=== PATIENT | male | born 1980 | race Caucasian/White ===

== ENCOUNTER → 2017-06-22 | Outpatient (CLI) | payer OTHER ==
[~2017-06-22] MED LIST: ALLERGY RELIEF10 M1; AUGMENTIN 875 M1 TAB PO; CIPRO500 MG PO; CLARITIN10 MG PO; DAYPRO600 M1 PO; Depakote250 MG; FLAGYL500 MG PO; INDERAL LA160 MG PO; LOMOTIL 0.025 M1 TA1 PO; LOMOTIL 0.025 M1 TAB PO; MOTRIN800 MG PO; NASONEX0.05 MG/AC NAS; NORCO 325 MG-51 TAB PO; NORCO 5-325 TA1 EACH PO; OMEPRAZOLE MAGN20 M1; PERCOCET 325 MG1 TA6 PO; PRAVACHOL10 MG PO; PREDNICOT20 MG PO; Phenergan25 MG PO; SINGULAIR10 MG PO; TOBRADEX 0.1%-0.5 ML OPH; TRAMADOL HCL50 MG PO; TRAMADOL HYDRO100 MG; TRIMOX500 MG PO; VENLAFAXINE150 MG PO; XANAX XR1 MG PO; ZANTAC150 MG PO; ZITHROMAX Z PA250 MG PO; ZOFRAN ODT4 MG SL; ZOFRAN4 MG PO
[2017-06-22 11:18] LABS: BASO % 0.5 % (0.0-1.0); EOS % 0.2 % (1.0-4.0); HEMATOCRIT 46.3 % (42.0-52.0); HEMOGLOBIN 16.1 g/dl (14.0-18.0); LYMPH # 3.4 10*3/uL (1.3-4.4); LYMPH % 38.9 % (27.0-41.0); MEAN CELL VOLUME 96.9 fl (80.0-94.0); MEAN CORPUSCULAR HGB 33.7 pg (27.0-31.0); MEAN CORPUSCULAR HGB CONC 34.8 g/dl (33.0-37.0); MEAN PLATELET VOLUME 8.8 fl (9.6-12.3); MONO # 0.7 10*3/uL (0.1-1.0); MONO % 8.1 % (3.0-9.0); NEUT # 4.6 10*3/uL (2.3-7.9); PLATELET COUNT AUTOMATED 313 10*3/uL (130-400); RED BLOOD COUNT 4.78 10*6/uL (4.50-5.90); RED CELL DISTRI WIDTH 12.5 % (0-14.5); WHITE BLOOD COUNT 8.9 10*3/uL (4.8-10.8)
[2017-06-22 11:46] LABS: ALBUMIN 3.7 gm/dl (3.1-4.5); ALKALINE PHOSPHATASE 103 U/L (45-117); BUN 6 mg/dl (7-24); CHLORIDE 106 mmol/L (98-107); CHOLESTEROL 148 mg/dL (<200); CREATININE 1.04 mg/dL (0.70-1.30); HDL CHOLESTEROL 39 mg/dl (40-60); LDL CHOLESTEROL 88 mg/dL (9-159); POTASSIUM 4.2 mmol/L (3.5-5.1); SGOT/AST 21 IU/L (3-35); SGPT/ALT 29 U/L (12-78); SODIUM 139 mmol/L (136-145); TOTAL PROTEIN 7.2 gm/dL (6.4-8.2); TRIGLYCERIDES 103 mg/dl (<150); VLDL CHOLESTEROL 21 mg/dL (6-40)
== END | disposition home or self-care (01) ==
LOC: LAB 10:55
PROVIDERS: Nurse Practitioner Family
DX: I10 Essential (primary) hypertension (principal)

== ENCOUNTER → 2018-06-24 | Day surgery (SDC) | payer OTHER ==
[2018-06-21 11:35] LABS: BASO % 0.4 % (0.0-1.0); EOS % 0.1 % (1.0-4.0); HEMATOCRIT 46.3 % (42.0-52.0); HEMOGLOBIN 16.1 g/dl (14.0-18.0); LYMPH # 2.1 10*3/uL (1.3-4.4); MEAN CELL VOLUME 95.3 fl (80.0-94.0); MEAN CORPUSCULAR HGB 33.1 pg (27.0-31.0); MEAN CORPUSCULAR HGB CONC 34.8 g/dl (33.0-37.0); MONO # 0.6 10*3/uL (0.1-1.0); MONO % 5.8 % (3.0-9.0); NEUT # 7.1 10*3/uL (2.3-7.9); NEUT % 72.5 % (47.0-73.0); PLATELET COUNT AUTOMATED 323 10*3/uL (130-400); RED BLOOD COUNT 4.86 10*6/uL (4.50-5.90); RED CELL DISTRI WIDTH 12.5 % (0-14.5); WHITE BLOOD COUNT 9.8 10*3/uL (4.8-10.8)
[2018-06-21 11:45] LABS: BILIRUBIN NEGATIVE (NEGATIVE); BLOOD NEGATIVE (NEGATIVE); CLARITY SL CLOUDY (CLEAR); COLOR YELLOW (YELLOW); GLUCOSE NEGATIVE (NEGATIVE); KETONE NEGATIVE (NEGATIVE); LEUKO ESTERASE NEGATIVE (NEGATIVE); NITRITE NEGATIVE (NEGATIVE); PH 6.5 (5.0-9.0); UROBILINOGEN 0.2 E.U./dl (0.2-1.0)
[2018-06-21 12:05] LABS: BUN 6 mg/dl (7-24); CHLORIDE 106 mmol/L (98-107); SODIUM 140 mmol/L (136-145)
[2018-06-21 12:22] LABS: INTERNATIONAL NORM RATIO 1.1 (2.0-3.5)
[2018-06-21 13:19] LABS: BACTERIA TRACE; MUCOUS 1+
[~2018-06-24] VITALS: Ht 182.8 cm; Wt 74.8 kg
--- NOTE | ~2018-06-24 | O ---
[place], [place] OPERATIVE NOTE NAME: [facility]ER [id number] UNIT #: [id number] ROOM: DOCTOR: BERNABE WALL MD BIRTHDATE: [birth year] DOS: 06/24/2018 PREOPERATIVE DIAGNOSIS: Left inguinal hernia. POSTOPERATIVE DIAGNOSIS: Left inguinal hernia. PROCEDURE: Repair of left inguinal hernia with plug and mesh (medium). SURGEON: Bernabe Wall MD EVALUATION ANALYST: HANNA. ANESTHESIA: General with endotracheal intubation. INDICATIONS: This is a 37-year-old gentleman here for repair of left-sided inguinal hernia, which is symptomatic. The procedure and its complications were explained to the patient in detail preoperatively. Complications that were discussed included but were not limited to bleeding, infection, hematoma/seroma/abscess formation, prolonged postoperative pain, recurrence and damage to underlying vital structures. He agreed to proceed. DESCRIPTION OF PROCEDURE: After identifying the patient, the patient was brought to the operating suite and laid in the supine position. After induction of general anesthesia, timeout procedure was called and the parts were then painted and draped in the usual sterile fashion. An incision was marked parallel to the left inguinal ligament. Incision was made on the marked site. Skin and the subcutaneous tissue were incised. The external oblique aponeurosis was incised in the line of its fibers. The cord structures were identified and encircled with the help of a [place] drain. There was a small indirect sac that was dissected away from the cord structures and then allowed to retract back into the peritoneal cavity. The internal ring was then reinforced by placing a medium mesh and suturing that to the overlying upturned part of the conjoint tendon with the help of 3-0 Prolene in interrupted fashion. Mesh was then brought in and cut to size and sutured to the upturned part of the inguinal ligament inferiorly and then to the conjoined tendon superiorly with the help of 3-0 Prolene in a running fashion. The Adela drain was then removed and the external oblique aponeurosis was approximated with the help of 3-0 Vicryl in a running fashion. The subcutaneous tissue was irrigated and approximated with the help of 3-0 Vicryl in a running fashion and the edges of the skin were infiltrated with 1% plain lidocaine and approximately help of 4-0 Vicryl in a subcuticular running fashion. Dressings were placed. The patient tolerated the procedure well and was extubated uneventfully and brought back to the recovery room in a stable fashion. There were no complications. Dr. Bernabe Wall, the attending surgeon, was present throughout the operating case. [place], [place] OPERATIVE NOTE NAME: STELLA FISHER JR Wilman UNIT #: [id number] ROOM: DOCTOR: BERNABE WALL MD BIRTHDATE: [birth year] Bernabe Wall MD CM:OPRECORD:OPERATIVE NOTE [id number] BERNABE WALL MD 06/24/18 1227 interface
[2018-06-24 08:47] VITALS: BP 137/85
[2018-06-24 10:57] VITALS: BP 130/86
[2018-06-24 11:12] VITALS: BP 142/85
[2018-06-24 11:27] VITALS: BP 139/88
[2018-06-24 11:42] VITALS: BP 135/85
[2018-06-24 11:57] VITALS: BP 138/81
== END | disposition home or self-care (01) ==
LOC: SDC 06-15 13:15
PROVIDERS: Surgery
DX: K40.90 Unilateral inguinal hernia, without obstruction or gangrene, not specified as recurrent (principal); G89.29 Other chronic pain; I10 Essential (primary) hypertension; J43.9 Emphysema, unspecified; K21.9 Gastro-esophageal reflux disease without esophagitis; F32.9 Major depressive disorder, single episode, unspecified; F41.9 Anxiety disorder, unspecified; Z79.899 Other long term (current) drug therapy; Z98.890 Other specified postprocedural states; Z88.8 Allergy status to other drugs, medicaments and biological substances; Z82.49 Family history of ischemic heart disease and other diseases of the circulatory system; Z87.19 Personal history of other diseases of the digestive system; Z87.01 Personal history of pneumonia (recurrent); Z79.01 Long term (current) use of anticoagulants

== ENCOUNTER → 2023-06-01 | Day surgery (SDC) | payer OTHER ==
[2023-05-29 12:52] LABS: BASO % 0.4 % (0.0-1.0); EOS % 0.4 % (1.0-4.0); HEMATOCRIT 45.8 % (42.0-52.0); LYMPH # 2.1 10*3/uL (1.3-4.4); LYMPH % 29.1 % (27.0-41.0); MEAN CORPUSCULAR HGB 33.1 pg (27.0-31.0); MEAN CORPUSCULAR HGB CONC 34.1 g/dl (33.0-37.0); MEAN PLATELET VOLUME 9.2 fl (9.6-12.3); MONO # 0.5 10*3/uL (0.1-1.0); MONO % 6.9 % (3.0-9.0); NEUT # 4.6 10*3/uL (2.3-7.9); NEUT % 62.9 % (47.0-73.0); PLATELET COUNT AUTOMATED 295 10*3/uL (130-400); RED BLOOD COUNT 4.72 10*6/uL (4.50-5.90); RED CELL DISTRI WIDTH 13.3 % (0-14.5); WHITE BLOOD COUNT 7.2 10*3/uL (4.8-10.8)
[2023-05-29 13:16] LABS: BUN 6 mg/dl (9-23); CHLORIDE 106 mmol/L (98-107)
[~2023-06-01] VITALS: Ht 182.8 cm; Wt 68.0 kg
[~2023-06-01] MED LIST changes: +HYDROCODONE-AC1 EAC1 PO
[2023-06-01 12:00] VITALS: BP 138/85
[2023-06-01 12:15] VITALS: BP 126/83
[2023-06-01 12:33] VITALS: BP 129/83
[2023-06-01 12:45] VITALS: BP 138/85
[2023-06-01 12:58] VITALS: BP 129/83
== END ==
LOC: SDC 05-28 14:00
PROVIDERS: ATTEND Surgery
DX: K64.8 Other hemorrhoids (principal); K62.5 Hemorrhage of anus and rectum; I10 Essential (primary) hypertension; K21.9 Gastro-esophageal reflux disease without esophagitis; F41.9 Anxiety disorder, unspecified; F32.A Depression, unspecified; J18.9 Pneumonia, unspecified organism; Z87.891 Personal history of nicotine dependence; Z79.899 Other long term (current) drug therapy; Z98.890 Other specified postprocedural states

== ENCOUNTER 2025-07-20 13:25 | Emergency (ER) | payer OTHER ==
[~2025-07-20] VITALS: Wt 68.0 kg
[2025-07-20 14:18] LABS: BASO # 0.0 10*3/uL (0.0-0.1); BASO % 0.6 % (0.0-1.0); EOS # 0.0 10*3/uL (0.0-0.4); EOS % 0.4 % (1.0-4.0); MEAN CELL VOLUME 97.1 fl (80.0-94.0); MEAN CORPUSCULAR HGB 33.0 pg (27.0-31.0); MEAN PLATELET VOLUME 8.7 fl (9.6-12.3); MONO # 0.5 10*3/uL (0.1-1.0); MONO % 7.6 % (3.0-9.0); NEUT # 4.0 10*3/uL (2.3-7.9); NEUT % 58.8 % (47.0-73.0); NUCLEATED RED BLOOD CELL 0.0 % (0.0-0.0); NUCLEATED RED BLOOD CELL 0.0 10*3/uL (0.0-0.0); PLATELET COUNT AUTOMATED 332 10*3/uL (130-400); RED CELL DISTRI WIDTH 13.0 % (0-14.5)
[2025-07-20 14:28] LABS: BUN 6 mg/dl (9-23)
== END 2025-07-20 16:49 | disposition home or self-care (01) ==
LOC: ED 13:25
PROVIDERS: Student in an Organized Health Care Education/Training Program
DX: R07.89 Other chest pain (principal); R05.9 Cough, unspecified; M54.6 Pain in thoracic spine